=== PATIENT | male | born 1980 | race Caucasian/White ===

== ENCOUNTER 2016-06-08 08:39 | Emergency (ER) | payer SELFPAY ==
[~2016-06-08] VITALS: Ht 188 cm; Wt 104.5 kg
[2016-06-08 08:40] VITALS: BP 138/83; PULSE 92; RESP 20; TEMP 98.1; O2SAT 99
--- NOTE | 2016-06-08 09:09 | PD ---
HPI Chief Complaint: Oral / Dental Pain or Problem Time Seen by Provider: 09:08 Travel History International Travel<30 days: No Contact w/Intl Traveler<30days: No Traveled to known affect area: No History of Present Illness HPI 36-year-old male presents to emergency Department with dental pain. Patient reports 3 day history of left upper jaw pain and swelling of the left cheek which is gotten progressively worse over the past 24 hours. Patient denies fever, chills, difficulty swallowing, no significant headache, or pain with movement of the eyes. He denies ear pain. He states a similar episode approximately one month ago but not as bad. Patient denies crack or broken teeth. Patient currently has no dentist. Patient has no known drug allergies. [facility] Social History Alcohol Use: Yes Tobacco Use: No Substance Use: No Allergies-Medications (Allergen,Severity, Reaction): Coded Allergies: No Known Allergies (Unverified , 06/08/16) Reported Meds & Prescriptions Reported Meds & Active Scripts Active No Active Prescriptions or Reported Medications Review of Systems Except as stated in HPI: all other systems reviewed are Neg General / Constitutional: No: Fever Eyes: No: Visual changes HENT: Positive: Dental Difficulties, No: Headaches Cardiovascular: No: Chest Pain or Discomfort Respiratory: No: Shortness of Breath Gastrointestinal: No: Abdominal Pain Genitourinary: No: Dysuria Musculoskeletal: No: Pain Skin: No Rash Neurologic: No: Weakness Psychiatric: No: Depression Endocrine: No: Polydipsia Hematologic/Lymphatic: No: Easy Bruising Physical Exam Narrative GENERAL: Patient appears in mild distress. SKIN: Warm and dry. Color. Normal turgor. No erythema or rash. HEAD: Atraumatic. Normocephalic. She has swelling over the left maxillary sinus and jaw. This area over the left maxillary sinus and jaw is tender with palpation, but no numbness appreciated. EYES: Pupils equal and round. No scleral icterus. No injection or drainage. ENT: No nasal bleeding or discharge. Mucous membranes pink and moist. Teeth actually look in good condition without obvious sign of caries. Pharynx is normal. Airway is patent. NECK: Trachea midline. Supple nontender without significant lymphadenopathy. No Juan José's angina. CARDIOVASCULAR: Regular rate and rhythm. RESPIRATORY: No accessory muscle use. Clear to auscultation. Breath sounds equal bilaterally. MUSCULOSKELETAL: Extremities without clubbing, cyanosis, or edema. No obvious deformities. NEUROLOGICAL: Awake and alert. No obvious cranial nerve deficits. Motor grossly within normal limits. Five out of 5 muscle strength in the arms and legs. Normal speech. PSYCHIATRIC: Appropriate mood and affect; insight and judgment normal. Data Data Last Documented VS Vital Signs Date Time Temp Pulse Resp B/P Pulse Ox O2 Delivery O2 Flow Rate FiO2 06/08/16 08:40 98.1 92 20 138/83 99 Room Air Orders Ketorolac Inj (Toradol Inj) (06/08/16 09:15) Clindamycin Inj (Cleocin Inj) (06/08/16 09:15) MDM Medical Decision Making Medical Screen Exam Complete: Yes Emergency Medical Condition: Yes Differential Diagnosis Dental pain. Facial cellulitis. Dental abscess. Sinusitis. Narrative Course Patient is medically stable at time of exam. Patient is given 60 mg Toradol IM as well as 600 mg clindamycin IM. Patient will be continued on clindamycin 300 mg 4 times a day 10 days. Patient also given prescription for ibuprofen 800 mg 3 times daily with food # 30. Patient also given prescription for it all 50 mg one every 6 hours when necessary #20. Patient is given local emergency dental information. Patient is to follow with the dentist as soon as possible. Patient can return to emergency Department with worsening symptoms as discussed. Work note for today is given. Diagnosis Primary Impression: Abscess, dental Referrals: Dentist Patient Instructions: General Instructions Departure Forms: Work Release Enter return to work date: Jun 11, 2016 Additional Instructions: Patient is given 60 mg Toradol IM as well as 600 mg clindamycin IM. Patient will be continued on clindamycin 300 mg 4 times a day 10 days. Patient also given prescription for ibuprofen 800 mg 3 times daily with food # 30. Patient also given prescription for it all 50 mg one every 6 hours when necessary #20. Patient is given local emergency dental information. Patient is to follow with the dentist as soon as possible. Patient can return to emergency Department with worsening symptoms as discussed. Work note for today is given. Scripts No Active Prescriptions or Reported Meds Disposition: 01 DISCHARGE HOME Condition: Stable Rogers Sharif Jun 08, 2016 09:09
[2016-06-08] MEDS ORDERED: KETOROLAC TROMETHAMINE 60 MG/2 ML (IM) VIAL IM ONE (09:15)
[2016-06-08] MEDS ORDERED: CLINDAMYCIN PHOS 600 MG/4 ML VIAL IM ONE (09:15)
[2016-06-08] MEDS ORDERED: CLIN1CAP5 PO (09:37)
[2016-06-08] MEDS ORDERED: TRAM50TA PO (09:37)
[2016-06-08] MEDS ORDERED: IBUP800T23 PO (09:37)
--- NOTE | 2016-06-09 12:51 | ED.CB ---
ED Call Back Communication Took phone call from pharmacy. Discussed with pharmacist. Patient states unable to afford the clindamycin. Tried good Rx, tried 150 mg tablets, tried substitute for Augmentin. Patient states he cannot afford more than $15. As a last resort, prescribed Pen-Vee K. This is clearly suboptimal given his visible swelling that he had and Augmentin or clindamycin would be preferred. He will try the Pen-Vee K and to save some money, and if is not improving will need to fill prescription for clindamycin. Nader Jorgensen MD Jun 09, 2016 12:51
== END 2016-06-08 09:48 | disposition home or self-care (01) ==
LOC: NEPB 08:39
DX: K04.7 Periapical abscess without sinus (principal)
CPT/HCPCS: 96372; 99282; J1885

== ENCOUNTER 2016-07-10 11:29 | Emergency (ER) | payer SELFPAY ==
[~2016-07-10 11:29] MED LIST: CLIN1CAP5 PO; IBUP800T23 PO; TRAM50TA PO
[2016-07-10 11:36] VITALS: BP 168/80; TEMP 99.5; O2SAT 97
[2016-07-10] MEDS ORDERED: SODIUM CHLOR 0.9% 1000 ML INJ 700 ML IV ONE (11:37)
[2016-07-10] MEDS ORDERED: SODIUM CHLOR 0.9% 1000 ML INJ 1,000 ML IV ONE ×2 (11:37)
--- NOTE | 2016-07-10 11:42 | PD ---
HPI Chief Complaint: Cold / Flu Symptoms Time Seen by Provider: 11:37 Travel History International Travel<30 days: No Contact w/Intl Traveler<30days: No Traveled to known affect area: No History of Present Illness HPI 36-year-old male arrives to the ER by private vehicle. He went to work this morning and lost consciousness while on a roof. He thinks he may have fell asleep or he may have lost consciousness and cannot tell difference. He remembers waking up with multiple coworkers around him. They assisted him to the ground. He then went into the work truck and slept for an hour and a half. At that point he was brought to the ER. Here he reports about 3 days or so of total body myalgias associated with fever vomiting and chest pressure. Rhinorrhea is reported. Cough is reported. Pleuritic chest pain is reported. He denies sick contacts. He's had a runny nose as well. PFSH Past Medical History ?: Not Social History Alcohol Use: Yes Tobacco Use: No Substance Use: No Allergies-Medications (Allergen,Severity, Reaction): Coded Allergies: No Known Allergies (Unverified , 06/08/16) Reported Meds & Prescriptions Reported Meds & Active Scripts Active Review of Systems Except as stated in HPI: all other systems reviewed are Neg Physical Exam Narrative GENERAL: 36-year-old male pleasant well-nourished well-developed moderate distress SKIN: Focused skin assessment warm/dry. HEAD: Atraumatic. Normocephalic. EYES: Pupils equal and round. No scleral icterus. No injection or drainage. ENT: No nasal bleeding or discharge. Mucous membranes pink and moist. NECK: Trachea midline. No JVD. CARDIOVASCULAR: Regular rhythm. Tachycardia. RESPIRATORY: No dyspnea or tachypnea. GASTROINTESTINAL: Abdomen soft, non-tender, nondistended. Hepatic and splenic margins not palpable. MUSCULOSKELETAL: No obvious deformities. No clubbing. No cyanosis. No edema. NEUROLOGICAL: Awake and alert. No obvious cranial nerve deficits. Motor grossly within normal limits. Normal speech. PSYCHIATRIC: Appropriate mood and affect; insight and judgment normal. Data Data Last Documented VS Vital Signs Date Time Temp Pulse Resp B/P Pulse Ox O2 Delivery O2 Flow Rate FiO2 07/10/16 13:22 113 146/80 100 07/10/16 11:45 Room Air 07/10/16 11:36 99.5 20 VS reviewed Orders Electrocardiogram (07/10/16 11:37) Complete Blood Count With Diff (07/10/16 11:37) Comprehensive Metabolic Panel (07/10/16 11:37) Lactic Acid Sepsis Protocol (07/10/16 11:37) Magnesium (Mg) (07/10/16 11:37) Ckmb (Isoenzyme) Profile (07/10/16 11:37) Troponin I (07/10/16 11:37) Urinalysis - C+S If Indicated (07/10/16 11:37) Influenzae A/B Antigen (07/10/16 11:37) Blood Culture (07/10/16 11:37) Chest, Single Ap (07/10/16 11:37) Blood Glucose (07/10/16 11:37) Ecg Monitoring (07/10/16 11:37) Iv Access Insert/Monitor (07/10/16 11:37) Oximetry (07/10/16 11:37) Oxygen Administration (07/10/16 11:37) Acetaminophen (Tylenol) (07/10/16 11:45) Sodium Chlor 0.9% 1000 Ml Inj (Ns 1000 M (07/10/16 11:37) Sodium Chlor 0.9% 1000 Ml Inj (Ns 1000 M (07/10/16 11:37) Sodium Chlor 0.9% 1000 Ml Inj (Ns 1000 M (07/10/16 11:37) Ct Pulmonary Angiogram (07/10/16 11:37) CKMB (07/10/16 11:44) CKMB% (07/10/16 11:44) Drug Screen, Random Urine (07/10/16 12:28) Alcohol (Ethanol) (07/10/16 12:28) Ct Abd/Pel W Iv Contrast(Rout) (07/10/16 12:47) Iohexol 350 Inj (Omnipaque 350 Inj) (07/10/16 13:55) Labs Laboratory Tests Test 07/10/16 07/10/16 11:44 11:50 White Blood Count 5.9 TH/MM3 Red Blood Count 4.77 MIL/MM3 Hemoglobin 13.7 GM/DL Hematocrit 40.7 % Mean Corpuscular Volume 85.2 FL Mean Corpuscular Hemoglobin 28.7 PG Mean Corpuscular Hemoglobin 33.7 % Concent Red Cell Distribution Width 12.4 % Platelet Count 160 TH/MM3 Mean Platelet Volume 8.3 FL Neutrophils (%) (Auto) 80.0 % Lymphocytes (%) (Auto) 9.0 % Monocytes (%) (Auto) 7.9 % Eosinophils (%) (Auto) 1.1 % Basophils (%) (Auto) 2.0 % Neutrophils # (Auto) 4.6 TH/MM3 Lymphocytes # (Auto) 0.5 TH/MM3 Monocytes # (Auto) 0.5 TH/MM3 Eosinophils # (Auto) 0.1 TH/MM3 Basophils # (Auto) 0.1 TH/MM3 CBC Comment DIFF FINAL Differential Comment Sodium Level 137 MEQ/L Potassium Level 3.6 MEQ/L Chloride Level 101 MEQ/L Carbon Dioxide Level 27.4 MEQ/L Anion Gap 9 MEQ/L Blood Urea Nitrogen 14 MG/DL Creatinine 1.10 MG/DL Estimat Glomerular Filtration 77 ML/MIN Rate Random Glucose 87 MG/DL Lactic Acid Level 1.0 mmol/L Calcium Level 8.6 MG/DL Magnesium Level 2.0 MG/DL Total Bilirubin 0.5 MG/DL Aspartate Amino Transf 275 U/L (AST/SGOT) Alanine Aminotransferase 472 U/L (ALT/SGPT) Alkaline Phosphatase 107 U/L Total Creatine Kinase 276 U/L Creatine Kinase MB 0.7 NG/ML Troponin I LESS THAN 0.02 NG/ML Total Protein 7.6 GM/DL Albumin 4.3 GM/DL Ethyl Alcohol Level LESS THAN 3 MG/DL Urine Collection Type CLEAN CATCH Urine Color YELLOW Urine Turbidity CLEAR Urine pH 6.5 Urine Specific [place] 1.022 Urine Protein TRACE mg/dL Urine Glucose (UA) NEG mg/dL Urine Ketones TRACE mg/dL Urine Occult Blood MOD Urine Nitrite NEG Urine Bilirubin NEG Urine Leukocyte Esterase NEG Urine RBC 25-49 /hpf Urine WBC 0-2 /hpf Urine Squamous Epithelial 0-5 /hpf Cells Urine Yeast (Budding) MOD Microscopic Urinalysis Comment CULT NOT INDICATED Urine Collection Time 11:50 Urine Opiates Screen NEG Urine Barbiturates Screen NEG Urine Amphetamines Screen NEG Urine Benzodiazepines Screen NEG Urine Cocaine Screen NEG Urine Cannabinoids Screen NEG MDM Medical Decision Making Medical Screen Exam Complete: Yes Emergency Medical Condition: Yes Medical Record Reviewed: Yes Differential Diagnosis NSTEMI, unstable angina, coronary vasospasm, PE, PTX, aortic dissection, pericarditis, myocarditis, endocarditis, PNA, esophageal disease, aneurysm, musculoskeletal etiologies, anxiety, cocaine/sympathomimetic abuse Narrative Course CBC & BMP Diagram 07/10/16 11:44 AST 275 ALT 472 Lactic acid 1.0 Troponin undetectable EKG reveals sinus tachycardia with a rate of 119 Toxicology is pending negative Urinalysis shows hematuria Last 24 hours Impressions Abdomen/Pelvis CT 07/10/16 1247 Signed Impressions: Service Date/Time: Sunday, July 10, 2016 12:57 - CONCLUSION: Normal examination. Braden Chua MD Chest X-Ray 07/10/16 1137 Signed Impressions: Service Date/Time: Sunday, July 10, 2016 12:06 - CONCLUSION: 1. No acute cardiopulmonary disease. Ced Geiger MD CT Angiography 07/10/16 1137 Signed Impressions: Service Date/Time: Sunday, July 10, 2016 12:57 - CONCLUSION: No evidence of pulmonary embolism. Ced Geiger MD Patient reveals upon reassessment that he drinks 4 cans of monster energy drink daily. He also vapes. We had a long discussion about that lifestyle change. The patient was very receptive. Return precautions discussed. He is ready for discharge. Diagnosis Primary Impression: Viral syndrome Additional Impression: Syncope and collapse Referrals: [facility] 2 days Additional Instructions: You have a choice when it comes to health care, and we are glad that you chose [facility]. Hopefully, we have met your expectations on today's visit. You are welcome to return to [facility] at any time, as we are committed to meeting the health care needs of our community. DRINK BLACK COFFEE INSTEAD OF ENERGY DRINKS. TRY TO QUIT VAPING. THAT IS DANGEROUS. Med/Other Pt SpecificInfo: No Change to Meds Disposition: 01 DISCHARGE HOME Condition: Stable Richmond Beauchamp MD Jul 10, 2016 11:42 Richmond Beauchamp MD Jul 10, 2016 11:42
[2016-07-10 11:45] VITALS: O2SAT 94
[2016-07-10] MEDS ORDERED: ACETAMINOPHEN 325 MG TAB PO ONE (11:45)
[2016-07-10 11:54] LABS: AUTOMATED NEUTROPHIL # 4.6 TH/MM3 (1.8-7.7); BASOPHIL # 0.1 TH/MM3 (0-0.2); EOSINOPHIL # 0.1 TH/MM3 (0-0.4); EOSINOPHIL % 1.1 % (0.0-4.0); HEMATOCRIT 40.7 % (39.0-51.0); LYMPHOCYTE # 0.5 TH/MM3 (1.0-4.8); MEAN CELL VOLUME 85.2 FL (80.0-100.0); MEAN CORPUSCULAR HEMOGLOBIN 28.7 PG (27.0-34.0); MEAN CORPUSCULAR HGB CONC 33.7 % (32.0-36.0); MONO % 7.9 % (0.0-8.0); PLATELET COUNT 160 TH/MM3 (150-450); RED BLOOD COUNT 4.77 MIL/MM3 (4.50-5.90); RED CELL DISTRIBUTION WIDTH 12.4 % (11.6-17.2); WHITE BLOOD COUNT 5.9 TH/MM3 (4.0-11.0)
[2016-07-10 11:57] LABS: HEMO FLAGS DIFF FINAL
[2016-07-10 12:05] LABS: CHLORIDE 101 MEQ/L (98-107); POTASSIUM 3.6 MEQ/L (3.5-5.1); SODIUM (NA) 137 MEQ/L (136-145)
[2016-07-10 12:08] LABS: GLUCOSE,URINE NEG (NEG); KETONE, URINE TRACE mg/dL (NEG); NITRITE,URINE NEG (NEG); PH, URINE 6.5 (5.0-8.5)
[2016-07-10 12:09] LABS: ANION GAP 9 MEQ/L (5-15); BICARBONATE 27.4 MEQ/L (21.0-32.0); BLOOD UREA NITROGEN 14 MG/DL (7-18)
[2016-07-10 12:12] VITALS: BP 148/72; PULSE 110; O2SAT 99
[2016-07-10 12:12] LABS: ALT (GPT) 472 U/L (12-78); AST (GOT) 275 U/L (15-37); GLOMERULAR FILTRATION RATE 77 ML/MIN (>89)
[2016-07-10 12:13] LABS: TOTAL BILIRUBIN ADULT 0.5 MG/DL (0.2-1.0)
[2016-07-10 12:14] LABS: CREATINE KINASE 276 U/L (39-308)
[2016-07-10 12:15] LABS: ALKALINE PHOSPHATASE 107 U/L (45-117)
[2016-07-10 12:20] LABS: BLOOD, URINE MOD (NEG); METHOD OF COLLECTION CLEAN CATCH; URINE COLOR YELLOW (YELLW/STRAW)
[2016-07-10 12:21] LABS: WBC, URINE 0-2 /hpf (0-5)
[2016-07-10 12:22] LABS: SQUAMOUS EPITHELIAL CELL URINE 0-5 /hpf (0-5)
[2016-07-10 12:23] LABS: COMMENT (UR) CULT NOT INDICATED; CULTURE IF INDICATED CULT NOT INDICATED
--- NOTE | 2016-07-10 12:23 | RADHPO ---
EXAM DATE/TIME: 07/10/2016 12:06 [facility] COMPARISON: No previous studies available for comparison. INDICATIONS : Flu like symptoms. Fever. Tired. Weak. Chest pressure. Syncopal episode. Head aches & body aches,. C ough. MEDICAL HISTORY : None. SURGICAL HISTORY : ACL repair. Right ear. ENCOUNTER: Initial ACUITY: 3 days PAIN SCORE: 8/10 LOCATION: chest FINDINGS: A single view of the chest demonstrates the lungs to be symmetrically aerated without evidence of mas s, infiltrate or effusion. The cardiomediastinal contours are unremarkable. Osseous structures are intact. CONCLUSION: 1. No acute cardiopulmonary disease. Ced Geiger MD on July 10, 2016 at 12:21 Board Certified Radiologist. This report was verified electronically.
[2016-07-10 12:27] LABS: CKMB 0.7 NG/ML (0.5-3.6)
[2016-07-10 12:56] LABS: AMPHETAMINE, URINE NEG (NEG); BARBITURATES, URINE NEG (NEG); COCAINE, URINE NEG (NEG)
[2016-07-10 13:22] VITALS: BP 146/80; PULSE 113; O2SAT 100
--- NOTE | 2016-07-10 13:44 | RADHPO ---
EXAM DATE/TIME: 07/10/2016 12:57 [facility] COMPARISON: No previous studies available for comparison. INDICATIONS : Cough, fever and chest pain. IV CONTRAST: 95 cc Omnipaque 350 (iohexol) IV ; Cumulative dose for multiple exams. RADIATION DOSE: 21.78 CTDIvol (mGy) MEDICAL HISTORY : None SURGICAL HISTORY : Orthopedic surgery. ENCOUNTER: Initial ACUITY: 3 days PAIN SCALE: 4/10 LOCATION: Bilateral chest TECHNIQUE: Volumetric scanning of the chest was performed using a pulmonary embolism protocol MIP images were re constructed. Using automated exposure control and adjustment of the mA and/or kV according to patien t size, radiation dose was kept as low as reasonably achievable to obtain optimal diagnostic quality images. FINDINGS: Examination of the pulmonary vasculature demonstrates good filling of the main, lobar and segmental b ranches. There are no filling defects to suggest pulmonary embolism. Multiplanar reconstructions are also unremarkable. Examination of the lung coelho demonstrates no evidence of pulmonary nodule. No pleural fluid is iden tified. Examination of the mediastinum demonstrates no abnormally enlarged lymph nodes by CT criteria . No axillary or hilar abnormalities are identified. Coronary artery calcifications are not present. The visualized upper abdomen demonstrates no abnormality. CONCLUSION: No evidence of pulmonary embolism. Ced Geiger MD on July 10, 2016 at 13:24 Board Certified Radiologist. This report was verified electronically.
[2016-07-10] MEDS ORDERED: IOHEXOL 350 MG/ML 10 ML VIAL (for RAD DIAG) IV ONE (13:55)
--- NOTE | 2016-07-10 14:13 | RADHPO ---
EXAM DATE/TIME: 07/10/2016 12:57 [facility] COMPARISON: No previous studies available for comparison. INDICATIONS : Non specific abdominal pain. IV CONTRAST: 95 cc Omnipaque 350 (iohexol) IV ORAL CONTRAST: No oral contrast ingested. RADIATION DOSE: 20.85 CTDIvol (mGy) MEDICAL HISTORY : None SURGICAL HISTORY : Orthopedic surgery. ENCOUNTER: Initial ACUITY: 3 days PAIN SCALE: 4/10 LOCATION: Bilateral abdomen TECHNIQUE: Volumetric scanning of the abdomen and pelvis was performed. Using automated exposure control and ad justment of the mA and/or kV according to patient size, radiation dose was kept as low as reasonably achievable to obtain optimal diagnostic quality images. FINDINGS: LOWER LUNGS: The visualized lower lungs are clear. LIVER: Homogeneous density without lesion. There is no dilation of the biliary tree. No calcified gallston es. SPLEEN: Normal size without lesion. PANCREAS: Within normal limits. KIDNEYS: Normal in size and shape. There is no mass, stone or hydronephrosis. ADRENAL GLANDS: Within normal limits. VASCULAR: There is no aortic aneurysm. BOWEL/MESENTERY: The stomach, small bowel, and colon demonstrate no acute abnormality. There is no free intraperitone al air or fluid. ABDOMINAL WALL: Within normal limits. RETROPERITONEUM: There is no lymphadenopathy. BLADDER: No wall thickening or mass. REPRODUCTIVE: Within normal limits. INGUINAL: There is no lymphadenopathy or hernia. MUSCULOSKELETAL: Within normal limits for patient age. CONCLUSION: Normal examination. Braden Chua MD on July 10, 2016 at 14:01 Board Certified Radiologist. This report was verified electronically.
[2016-07-10 14:54] VITALS: BP 140/76; PULSE 99; TEMP 100.5; O2SAT 98
--- NOTE | 2016-07-11 11:12 | EKG ---
Date Performed: 07/10/2016 Time Performed: 11:31:22 PTAGE: 36 years EKG: Sinus tachycardia. Possible left atrial abnormality Indeterminate axis Poor R wave progress ion - probable normal variant Borderline ECG NO PREVIOUS TRACING DOCTOR: Nader Bill Interpretating Date/Time 07/11/2016 11:10:55
== END 2016-07-10 15:01 | disposition home or self-care (01) ==
LOC: PHED 11:29
DX: B34.9 Viral infection, unspecified (principal); R55 Syncope and collapse; R00.0 Tachycardia, unspecified; R31.9 Hematuria, unspecified; M79.1 Myalgia
CPT/HCPCS: 71010; 71275; 74177; 80053; 80307; 81001; 82550; 82552; 83605; 83735; 84484; 85025; 87040; 87205; 87804; 93005; 96360; 96361; 99284; J7030; Q9967